=== PATIENT | female | born 1965 | race African-American/Black ===

== ENCOUNTER 2017-05-22 09:46 | Emergency (ER) | payer OTHER ==
[~2017-05-22] VITALS: Ht 160 cm; Wt 94.3 kg
[2017-05-22] MEDS ORDERED: SODIUM CHLORIDE 0.9% 1,000 ML IV ONE (10:06)
[2017-05-22] MEDS ORDERED: ASPirin 81 mg TAB PO ONE (10:15)
[2017-05-22] MEDS ORDERED: ONDANSETRON HCL 4 MG/2 ML VIAL IV ONE (10:15)
[2017-05-22] MEDS: MORPHINE SULFATE 10 MG/ML INJ 1ML SDV IV PRN ×2 (10:55→20:05)
[2017-05-22 11:00] LABS: Basophils # (auto) 0 uL; Basophils % (auto) 0.4 % (0.0-2.0); Eosinophils # (auto) 0.1 uL; Eosinophils % (auto) 0.9 % (0.0-7.0); Hemoglobin 10.5 g/dL (12.2-16.2); Lymphocytes # (auto) 0.4 uL; Lymphocytes % (auto) 7.5 % (10.0-50.0); Mean Corpuscular Hemoglobin 29.2 pg (28.0-32.0); Mean Corpuscular Hgb Conc. 31.8 g/dL (32.0-36.0); Mean Corpuscular Volume 91.8 fL (80.0-100.0); Monocytes # (auto) 0.6 uL; Neutrophils # (auto) 4.6 uL; Neutrophils % (auto) 80.2 % (37.0-80.0); Nucleated Red Blood Cells % 0.1 %; Platelet Count (auto) 310 10^3/uL (140-450); Red Cell Distribution Width 16.1 % (11.8-14.3); White Blood Cell 5.8 10^3/uL (4.4-10.8)
[2017-05-22 11:21] LABS: Albumin 2.7 g/dL (3.4-5.0); BUN/Creatinine Ratio 21.4; Bilirubin, Total 0.5 mg/dL (0.2-1.0); Calcium 8.5 mg/dL (8.5-10.1); Magnesium 2.4 mg/dL (1.6-2.6); Potassium 3.9 mmol/L (3.5-5.1); Total Protein 8.4 g/dL (6.4-8.2)
[2017-05-22 11:22] LABS: INR 3.77 (0.9-1.15); Partial Thromboplastin Time 45.2 sec (22.64-33.71); Prothrombin Time 41.6 sec (9.37-12.3)
[2017-05-22] MEDS ORDERED: IOHEXOL 350 MG/ML 100ML IJ ONE (11:52)
[2017-05-22] MEDS ORDERED: MORPHINE SULFATE 10 MG/ML INJ 1ML SDV IV ONE (13:30)
[2017-05-22 15:08] LABS: Urine Bacteria NONE SEEN /hpf (None Seen); Urine Blood Negative /uL (Negative); Urine Specific Gravity 1.031 (1.001-1.035); Urine WBC 62 /hpf (0 - 5)
[2017-05-22] MEDS ORDERED: cefTRIAXone 1GM/50ML D5W 50 ML IV ONE (15:45)
[2017-05-22] MEDS ORDERED: HYDROcodone-ACET 10/325MG TAB PO ONE (18:15)
[2017-05-22 22:41] VITALS: BP 136/63
== END 2017-05-22 23:01 | disposition short-term general hospital (02) ==
LOC: ER 09:46
DX: R07.9 Chest pain, unspecified (principal); R79.89 Other specified abnormal findings of blood chemistry; R79.1 Abnormal coagulation profile; Z86.711 Personal history of pulmonary embolism; Z96.652 Presence of left artificial knee joint; Z86.718 Personal history of other venous thrombosis and embolism
CPT/HCPCS: 36415; 71020; 71275; 80053; 81001; 83605; 83735; 84443; 84484; 85025; 85379; 85610; 85730; 87040; 93005; 96361; 96365; 96375; 96376; 99285; J0696; J2270; J2405; J7030; Q9967

== ENCOUNTER 2019-07-20 21:09 | Emergency (ER) | payer OTHER ==
[~2019-07-20] VITALS: Ht 157.5 cm; Wt 90.7 kg
[2019-07-20 22:13] LABS: Basophils # (auto) 0 uL; Basophils % (auto) 1.4 % (0.0-2.0); Eosinophils # (auto) 0 uL; Hematocrit 37.5 % (36.0-46.0); Hemoglobin 12.2 g/dL (12.2-16.2); Lymphocytes # (auto) 0.5 uL; Lymphocytes % (auto) 22.5 % (10.0-50.0); Mean Corpuscular Hemoglobin 29.5 pg (28.0-32.0); Mean Corpuscular Hgb Conc. 32.5 g/dL (32.0-36.0); Monocytes # (auto) 0.4 uL; Monocytes % (auto) 15.2 % (0.0-12.0); Neutrophils # (auto) 1.5 uL; Neutrophils % (auto) 59.9 % (37.0-80.0); Platelet Count (auto) 183 10^3/uL (140-450); Red Blood Cells 4.11 10^6/uL (4.0-5.20); White Blood Cell 2.4 10^3/uL (4.4-10.8)
[2019-07-20 22:33] LABS: Alanine Aminotransferase 25 U/L (13-56); Albumin 3.1 g/dL (3.4-5.0); Anion Gap 6 (5-15); Aspartate Aminotransferase 27 U/L (15-37); BUN/Creatinine Ratio 23.2; Blood Urea Nitrogen 16 mg/dL (7-18); Calcium 8.4 mg/dL (8.5-10.1); Carbon Dioxide 25 mmol/L (21-32); Chloride 111 mmol/L (98-107); GFR African American 114 mL/min; GFR Non-African American 95 mL/min; Glucose 91 mg/dL (74-106); Magnesium 2.2 mg/dL (1.6-2.6); Potassium 3.4 mmol/L (3.5-5.1); Sodium 142 mmol/L (136-145)
[2019-07-20 22:37] LABS: INR 1.2 (0.9-1.15); Partial Thromboplastin Time 28.7 sec (23.64-32.05)
[2019-07-20 22:38] LABS: Alkaline Phosphatase 91 U/L (45-117); Bilirubin, Total 0.4 mg/dL (0.2-1.0); Total Protein 7.6 g/dL (6.4-8.2)
[2019-07-20] MEDS ORDERED: IOHEXOL 350 MG/ML 100ML IJ ONE (23:03)
[2019-07-21] MEDS ORDERED: ONDANSETRON HCL 4 MG/2 ML VIAL IV ONE
[2019-07-21] MEDS ORDERED: MORPHINE SULFATE 4 MG/ML SYR/VIAL IV ONE
[2019-07-21 01:34] VITALS: BP 128/74
== END 2019-07-21 03:11 | disposition home or self-care (01) ==
LOC: EDBD 21:09 → EDSEX 21:09 → ER 21:12
DX: R07.89 Other chest pain (principal); Z79.01 Long term (current) use of anticoagulants; I11.0 Hypertensive heart disease with heart failure; I50.9 Heart failure, unspecified; E11.9 Type 2 diabetes mellitus without complications; I25.2 Old myocardial infarction
CPT/HCPCS: 36415; 71045; 71275; 80053; 83735; 83880; 84484; 85025; 85379; 85610; 85730; 93005; 93971; 96374; 96375; 99284; J2270; J2405; Q9967

== ENCOUNTER 2020-04-01 07:26 | Inpatient (IN) | payer OTHER ==
[~2020-04-01] VITALS: Ht 160 cm; Wt 93.9 kg
[2020-04-01 08:12] LABS: Basophils # (auto) 0 10 ^3/uL (0-0.2); Basophils % (auto) 0.6 % (0.0-2.0); Eosinophils # (auto) 0 10 ^3/uL (0-0.8); Eosinophils % (auto) 1.7 % (0.0-7.0); Hematocrit 38.7 % (36.0-46.0); Hemoglobin 12.6 g/dL (12.2-16.2); Lymphocytes # (auto) 0.8 10 ^3/uL (0.4-5.4); Lymphocytes % (auto) 32.8 % (10.0-50.0); Mean Corpuscular Hemoglobin 29.7 pg (28.0-32.0); Mean Corpuscular Hgb Conc. 32.7 g/dL (32.0-36.0); Mean Corpuscular Volume 90.9 fL (80.0-100.0); Monocytes # (auto) 0.4 10 ^3/uL (0-1.3); Monocytes % (auto) 13.6 % (0.0-12.0); Neutrophils # (auto) 1.3 10 ^3/uL (1.6-8.6); Neutrophils % (auto) 51.3 % (37.0-80.0); Nucleated Red Blood Cells % 0.6 %; Platelet Count (auto) 196 10^3/uL (140-450); Red Blood Cells 4.25 10^6/uL (4.0-5.20); Red Cell Distribution Width 15.2 % (11.8-14.3); White Blood Cell 2.6 10^3/uL (4.4-10.8)
[2020-04-01 08:28] LABS: Albumin 3.2 g/dL (3.4-5.0); Anion Gap 2 (5-15); Blood Urea Nitrogen 22 mg/dL (7-18); Calcium 8.1 mg/dL (8.5-10.1); Carbon Dioxide 29 mmol/L (21-32); Chloride 109 mmol/L (98-107); Glucose 74 mg/dL (74-106); Potassium 4.1 mmol/L (3.5-5.1); Sodium 140 mmol/L (136-145)
[2020-04-01] MEDS ORDERED: NITROGLYCERIN 0.4 MG SL TAB SL ONE (08:30)
[2020-04-01] MEDS ORDERED: ASPirin 81 mg TAB PO ONE (08:30)
[2020-04-01] MEDS ORDERED: FUROSEMIDE 20 MG/2 ML VIAL IV ONE (08:30)
[2020-04-01 08:34] LABS: Alanine Aminotransferase 21 U/L (13-56); Alkaline Phosphatase 85 U/L (45-117); Aspartate Aminotransferase 21 U/L (15-37); BUN/Creatinine Ratio 26.8; Bilirubin, Total 0.4 mg/dL (0.2-1.0); GFR African American 93 mL/min; GFR Non-African American 77 mL/min; Total Protein 7.4 g/dL (6.4-8.2)
[2020-04-01 08:45] LABS: INR 2.21 (0.9-1.15); Partial Thromboplastin Time 33.8 sec (23.0-31.2)
[2020-04-01] MEDS ORDERED: MORPHINE SULFATE 4 MG/ML SYR/VIAL IV ONE (09:30)
[2020-04-01] MEDS ORDERED: ONDANSETRON HCL 4 MG/2 ML VIAL IV ONE (09:30)
[2020-04-01] MEDS ORDERED: NITROGLYCERIN 0.4 MG SL TAB SL PRN (10:00)
[2020-04-01] MEDS ORDERED: MORPHINE SULF INJ 2 MG/ML SYRINGE 1ML IV PRN (10:00)
[2020-04-01] MEDS: SODIUM CHLORIDE 0.9% 1,000 ML IV SCH ×2 (10:06→23:17)
[2020-04-01] MEDS ORDERED: TEMAZEPAM 15 MG CAP PO PRN (10:15)
[2020-04-01] MEDS ORDERED: LACTULOSE 20Gm/30ML SOLN PO PRN (10:15)
[2020-04-01] MEDS ORDERED: PROMETHAZINE HCL 25 MG/ML 1ML IV PRN (10:15)
[2020-04-01] MEDS ORDERED: CLOPIDOGREL BISULFATE 75 MG TAB PO ONE (10:15)
[2020-04-01] MEDS ORDERED: DEXTROSE (50%) 50ML SYRG IV PRN (10:15)
[2020-04-01] MEDS: ACCU-CHEK COMFORT CURVE STRIP VI SCH ×3 (11:30→21:55)
[2020-04-01] MEDS: InsuLIN REG 1unit/0.01ml Soln (100units/ml) SC SCH ×3 (11:30→21:55)
[2020-04-01] MEDS ORDERED: WARF5TAB71 PO ×2 (11:40)
[2020-04-01] MEDS ORDERED: BACL10TA PO (11:42)
[2020-04-01] MEDS ORDERED: METO25TA5 PO (11:42)
[2020-04-01] MEDS ORDERED: ACE3T PO (11:42)
[2020-04-01] MEDS ORDERED: FURO1TAB33 PO (11:42)
[2020-04-01] MEDS ORDERED: AMLO-483 PO (11:42)
[2020-04-01] MEDS ORDERED: POTA10TA51 PO (11:42)
--- NOTE | 2020-04-01 16:31 | NUR ---
report received from ED RN.
--- NOTE | 2020-04-01 16:40 | NUR ---
Telemetry admit from ER MELISA [place] admitted to Telemetry unit after SBAR received. Patient oriented to AYAH wheeler RN, unit, room, bed, and unit policies regarding patient care and visiting hours. Patient now on continuous telemetry monitoring, tele box # 34 and telemetry reading on arrival to unit is NSR. Patient weighed by bedscale and encouraged to call if they need something. All questions and concerns addressed, patient verbalized understanding.
[2020-04-01] MEDS: MORPHINE SULF INJ 2 MG/ML SYRINGE 1ML IV PRN (18:36)
--- NOTE | 2020-04-01 19:10 | NUR ---
end of shift note Endorsed care to NOC LOPEZ [place]. No s/s of distress noted.
--- NOTE | 2020-04-01 20:05 | NUR ---
Opening Shift Note Assumed care of patient, awake and alert. No S/S of distress/SOB or pain. Instructed on POC and to call for assist PRN, will continue to monitor for changes Q1hr and PRN. Bed locked in lowest position, HOB elevated at least 30 degrees, call light is within reach and side rails up x 2.
[2020-04-01] MEDS: ATORVASTATIN 20 MG TAB PO SCH (21:14)
--- NOTE | 2020-04-01 21:56 | NUR ---
URINE SAMPLE COLLECTED AND SENT TO LAB
[2020-04-01 23:15] VITALS: BP 120/84
[2020-04-02 04:05] LABS: Urine Bacteria NONE SEEN /hpf (None Seen); Urine Blood Negative /uL (Negative); Urine Specific Gravity 1.019 (1.001-1.035); Urine WBC <1 /hpf (0 - 5)
[2020-04-02 04:12] LABS: Alcohol, Urine < 3.0 mg/dL (0-10); Amphetamine Screen, Urine NEGATIVE (NEGATIVE); Barbiturate Scree,Urine NEGATIVE (NEGATIVE); Cannabinoid Screen, Urine NEGATIVE (NEGATIVE); Cocaine Screen, Urine NEGATIVE (NEGATIVE); Opiate Scree,Urine POSITIVE (NEGATIVE); Phencyclidine Screen, Urine NEGATIVE (NEGATIVE)
[2020-04-02 04:16] LABS: Benzodiazephine Screen, Urine NEGATIVE (NEGATIVE)
[2020-04-02] MEDS: MORPHINE SULF INJ 2 MG/ML SYRINGE 1ML IV PRN ×2 (04:48→22:47)
[2020-04-02 05:14] VITALS: BP 132/93
[2020-04-02] MEDS: InsuLIN REG 1unit/0.01ml Soln (100units/ml) SC SCH (06:01)
[2020-04-02] MEDS: ACCU-CHEK COMFORT CURVE STRIP VI SCH (06:01)
--- NOTE | 2020-04-02 07:30 | NUR ---
Opening Shift Note Assumed care of patient, who is alert and oriented x4. Respirations are even and unlabored. No S/S of distress/SOB. No reports of chest pain at this time. Bed is low, locked with 2x side rails up. Call light is within reach. Instructed on POC and to call for assist PRN, will continue to monitor for changes Q1hr and PRN.
--- NOTE | 2020-04-02 07:40 | NUR ---
CLOSING NOTE CARE ENDORSED TO DAY SHIFT RN
[2020-04-02 09:00] VITALS: BP 113/65
[2020-04-02] MEDS: PANTOPRAZOLE 40 MG TAB PO SCH (09:51)
[2020-04-02] MEDS: NITROGLYCERIN 0.2MG/HR TOPICAL PATCH TD SCH (09:52)
[2020-04-02] MEDS ORDERED: CLOPIDOGREL BISULFATE 75 MG TAB PO SCH (10:00)
[2020-04-02] MEDS ORDERED: ENOXAPARIN SOD 40 MG/0.4 ML SYRINGE SC SCH (10:00)
[2020-04-02 10:14] LABS: Cholesterol 148 mg/dL (< 200); HDL Cholesterol 78 mg/dL (40-59); LDL Cholesterol 63 mg/dL (< 100); Triglycerides 67 mg/dL (< 150)
--- NOTE | 2020-04-02 10:55 | NUR ---
Dr. Tyrell Brown rounding Discussing POC with patient. New orders received, read back and verified.
[2020-04-02 10:56] LABS: INR 1.61 (0.9-1.15)
[2020-04-02] MEDS ORDERED: FUROSEMIDE 20 MG TAB PO ONE (11:00)
[2020-04-02] MEDS ORDERED: WARFARIN SODIUM 5 MG TAB PO ONE (11:15)
[2020-04-02] MEDS: SODIUM CHLORIDE 0.9% 1,000 ML IV SCH (12:46)
[2020-04-02 13:00] VITALS: BP 117/76
[2020-04-02 15:40] LABS: Basophils # (auto) 0.01 10 ^3/uL (0-0.2); Basophils % (auto) 0.4 % (0.0-2.0); Eosinophils # (auto) 0 10 ^3/uL (0-0.8); Eosinophils % (auto) 1.5 % (0.0-7.0); Lymphocytes # (auto) 0.62 10 ^3/uL (0.4-5.4); Lymphocytes % (auto) 22.7 % (10.0-50.0); Neutrophils # (auto) 1.75 10 ^3/uL (1.6-8.6); White Blood Cell 2.7 10^3/uL (4.4-10.8)
[2020-04-02 15:41] LABS: Mean Corpuscular Hemoglobin 29.1 pg (28.0-32.0); Platelet Count (auto) 94 10^3/uL (140-450); Red Blood Cells 4.47 10^6/uL (4.0-5.20); Red Cell Distribution Width 15.2 % (11.8-14.3)
[2020-04-02] MEDS: traMADol HCL 50 MG TAB PO PRN (16:39)
--- NOTE | 2020-04-02 16:47 | NUR ---
Unable to obtain IV access Patient willing to have IV placed by ultrasound only. Patient states "I'm a hard stick and don't want to be poked unnecessarily". No ultrasound available at this time. Will continue to monitor Q1hr and PRN.
[2020-04-02 17:00] VITALS: BP 122/65
--- NOTE | 2020-04-02 17:02 | NUR ---
Cleared by cardiology Patient cleared by Dr. Ernandez (Cardiology) and may be discharged home. Per Dr. Tyrell Brown, he will be discharging patient tomorrow. Will continue to monitor Q1hr and PRN.
--- NOTE | 2020-04-02 18:15 | NUR ---
IV insertion IV access obtained, via clean sterile technique by inserting a 22 gauge catheter to the right hand after 1 attempt. IV secured properly. No trauma to site. Patient tolerated well.
--- NOTE | 2020-04-02 19:35 | NUR ---
PATIENT REFUSING IV FLUIDS PATIENT REFUSED IV FLUIDS. SHE VERBALIZED THAT SHE DOES NOT WANT THE IV SITE TO INFILTRATE. EDUCATION PROVIDED HOWEVER PATIENT STILL REFUSED.
[2020-04-02] MEDS: ATORVASTATIN 20 MG TAB PO SCH (21:30)
[2020-04-02 22:18] VITALS: BP 124/80
--- NOTE | 2020-04-03 | NUR ---
Hospitalist Called/paged Hospitalist called regarding patient's diet. Waiting for call back. Continue care.
--- NOTE | 2020-04-03 00:08 | NUR ---
Hospitalist returned call Dr. Campbell returned call, updated on patient status and reason for call. Instructed to keep patient on the same diet. Continue care.
[2020-04-03] MEDS: SODIUM CHLORIDE 0.9% 1,000 ML IV SCH (02:06)
[2020-04-03 04:53] VITALS: BP 106/70
--- NOTE | 2020-04-03 07:09 | NUR ---
Closing Note Endorsed care to day shift RN
[2020-04-03 09:00] VITALS: BP 109/77
[2020-04-03 09:09] VITALS: BP 109/77
[2020-04-03] MEDS: NITROGLYCERIN 0.2MG/HR TOPICAL PATCH TD SCH (09:18)
[2020-04-03] MEDS: PANTOPRAZOLE 40 MG TAB PO SCH (09:19)
[2020-04-03] MEDS: traMADol HCL 50 MG TAB PO PRN (09:29)
[2020-04-03] MEDS ORDERED: FUROSEMIDE 20 MG TAB PO SCH (10:00)
[2020-04-03] MEDS ORDERED: POTASSIUM CHL 10 Meq TABLET PO SCH (10:00)
--- NOTE | 2020-04-03 11:16 | NUR ---
Discharge instructions given as ordered. Encourage to follow up with PMD as instructed. All questions and concerns addressed. Encouraged patient to follow up with [place] PCP for f/u appt and referral for a high speed operator. Patient verbalized understanding. Medication reconciliation form completed and copy given to patient. IV removed with catheter intact, pressure dressing applied. Telemetry unit returned to ICU. Patient taken to vehicle via wheelchair with all personal belongings, accompanied by staff. No distress noted at time of departure.
== END 2020-04-03 11:16 | disposition home or self-care (01) | DRG 313 ==
LOC: ER 07:26 → TELE 07:27 → TELE-CENTR 16:49
PROVIDERS: ADMIT Internal Medicine; ATTEND Internal Medicine
DX: R07.89 Other chest pain (principal); I24.9 Acute ischemic heart disease, unspecified; I27.82 Chronic pulmonary embolism; D72.819 Decreased white blood cell count, unspecified; G62.9 Polyneuropathy, unspecified; Z96.652 Presence of left artificial knee joint; I11.0 Hypertensive heart disease with heart failure; I50.9 Heart failure, unspecified; N28.9 Disorder of kidney and ureter, unspecified; Z86.718 Personal history of other venous thrombosis and embolism; Z90.710 Acquired absence of both cervix and uterus; Z95.828 Presence of other vascular implants and grafts; Z88.1 Allergy status to other antibiotic agents; Z88.5 Allergy status to narcotic agent
CPT/HCPCS: 36415; 71045; 80053; 80061; 80307; 81001; 82550; 82962; 83036; 83880; 84443; 84484; 85025; 85379; 85610; 85652; 85730; 86141; 93005; 93306; 93970; 99291; G0378; J2405